=== PATIENT | male | born 1995 | race Caucasian/White ===

== ENCOUNTER 2017-04-26 13:37 | Emergency (ER) | payer OTHER ==
[2017-04-26] MEDS ORDERED: Lidocaine 1% 30 ML SDV INJECT ONE (14:02)
[2017-04-26] MEDS ORDERED: Diphtheria,Pertussis(Acell),Tetanus Vaccine 0.5 ML SDV IM ONE (14:02)
[2017-04-26] MEDS ORDERED: Bacitracin Oint 1 GM U/D Packet TOP ONE (14:02)
[2017-04-26] MEDS ORDERED: Diphtheria,Pertussis(Acell),Tetanus Vaccine 0.5 ML SDV ONE (14:07)
[2017-04-26] MEDS ORDERED: Bacitracin Oint 1 GM U/D Packet ONE (14:07)
[2017-04-26] MEDS ORDERED: Lidocaine 1% 30 ML SDV ONE (14:07)
== END 2017-04-26 15:38 ==
LOC: DL.ED 13:37
DX: S61.412A Laceration without foreign body of left hand, initial encounter (principal); Z23 Encounter for immunization; W29.8XXA Contact with other powered hand tools and household machinery, initial encounter; W22.8XXA Striking against or struck by other objects, initial encounter; Y99.0 Civilian activity done for income or pay
CPT/HCPCS: 12002; 90471; 90715; 99282

== ENCOUNTER 2017-05-14 18:00 | Emergency (ER) | payer SELFPAY | END 2017-05-14 18:18 | disposition left against medical advice (07) | LOC: DL.ED 18:00 | DX: Z53.21 Procedure and treatment not carried out due to patient leaving prior to being seen by health care provider (principal) ==